=== PATIENT | female | born 1940 | race Caucasian/White ===

== ENCOUNTER 2017-03-18 20:37 | Emergency (ER) | payer MEDICARE ==
[~2017-03-18] VITALS: Ht 160 cm; Wt 63.5 kg
[2017-03-18] MEDS ORDERED: SIMV40TA5 PO (20:54)
[2017-03-18] MEDS ORDERED: PANT40TA4 PO (20:54)
[2017-03-18] MEDS ORDERED: RIVA20TA PO (20:54)
[2017-03-18] MEDS ORDERED: LEVO50TA8 PO (20:54)
--- NOTE | 2017-03-18 21:52 | NUR ---
Patient discharged to home in stable conditon. Written and verbal after care instructions given. Patient verbalizes understanding of instructions.
== END 2017-03-18 21:53 | disposition home or self-care (01) ==
LOC: ER 20:40
DX: S09.90XA Unspecified injury of head, initial encounter (principal); R51 Headache; K21.9 Gastro-esophageal reflux disease without esophagitis; E78.00 Pure hypercholesterolemia, unspecified; W22.8XXA Striking against or struck by other objects, initial encounter; Y93.89 Activity, other specified; Y99.8 Other external cause status; Y92.89 Other specified places as the place of occurrence of the external cause
CPT/HCPCS: 70450; A4663

== ENCOUNTER 2021-05-05 15:39 | Emergency (ER) | payer BC, OTHER ==
[~2021-05-05] VITALS: Ht 160 cm; Wt 63.5 kg
[~2021-05-05 15:39] MED LIST: LEVO50TA8 PO; PANT40TA49 PO; RIVA20TA PO; SIMV-49 PO
--- NOTE | 2021-05-05 17:43 | NUR ---
Patient discharged to home in stable condition. Written and verbal after care instructions given. Patient verbalizes understanding of instructions. Stressed follow up or return to ER for worsening s/s.
== END 2021-05-05 17:43 | disposition home or self-care (01) ==
LOC: ER 15:45
DX: S00.03XA Contusion of scalp, initial encounter (principal); W18.09XA Striking against other object with subsequent fall, initial encounter; Y93.E1 Activity, personal bathing and showering; Y92.012 Bathroom of single-family (private) house as the place of occurrence of the external cause; Z86.718 Personal history of other venous thrombosis and embolism; Z79.01 Long term (current) use of anticoagulants; K21.9 Gastro-esophageal reflux disease without esophagitis; E78.00 Pure hypercholesterolemia, unspecified; Z79.899 Other long term (current) drug therapy; E07.9 Disorder of thyroid, unspecified; Z79.890 Hormone replacement therapy
CPT/HCPCS: 70450; 72125; A4663

== ENCOUNTER 2021-06-06 09:09 | Emergency (ER) | payer OTHER ==
[~2021-06-06] VITALS: Ht 160 cm; Wt 63.5 kg
[2021-06-06] MEDS ORDERED: APIX2.5T PO (09:33)
[2021-06-06] MEDS ORDERED: ALEN70TA80 PO (09:33)
--- NOTE | 2021-06-06 09:35 | NUR ---
Cut noted to pastients bridge of nose, no signs of acute distress noted
--- NOTE | 2021-06-06 09:36 | NUR ---
at bedside for assessment
--- NOTE | 2021-06-06 10:17 | NUR ---
Patient returned from CT at this time
--- NOTE | 2021-06-06 10:47 | NUR ---
Patient discharged to home in stable condition. No signs of acute distress noted, took all belongigns. Written and verbal after care instructions given. Patient verbalizes understanding of instructions. Stressed follow up or return to ER for worsening s/s.
[2021-06-06 10:50] VITALS: BP 132/67
== END 2021-06-06 11:00 | disposition home or self-care (01) ==
LOC: ER 09:09
DX: S09.90XA Unspecified injury of head, initial encounter (principal); W01.0XXA Fall on same level from slipping, tripping and stumbling without subsequent striking against object, initial encounter; Y92.89 Other specified places as the place of occurrence of the external cause; Z86.718 Personal history of other venous thrombosis and embolism; Z79.01 Long term (current) use of anticoagulants; K21.9 Gastro-esophageal reflux disease without esophagitis; E07.9 Disorder of thyroid, unspecified; Z79.890 Hormone replacement therapy
CPT/HCPCS: 70450; 70486; A4663